=== PATIENT | female | born 1965 | race Caucasian/White ===

== ENCOUNTER 2020-07-08 21:24 | Emergency (ER) | payer OTHER ==
[~2020-07-08] VITALS: Ht 165.1 cm; Wt 75.0 kg
[2020-07-08 22:25] VITALS: BP 123/74
--- NOTE | 2020-07-08 22:35 | PHYS DOC ---
Past History Past Medical History: Anxiety, Hypertension General Adult HPI: HPI: ".. I was trying to keep my 1 yr old gand son from falling.. but instead I fell on to my Lt hip and Rt shoulder.. this Lt hip is killing me.. I can't bear wt on it..." Patient is a 54 year old female who presents with above hx and fall . Report injury to Rt., shoulder and Lt hip. Patient distal neurovascular appears to be intact however marked pain left hip. Does have contusion to right shoulder and chest wall. Distal neurovascular appears to be intact in her arms. Patient denies other injury. Any movement of left hip does exacerbate her pain. Patient normally follows at for her care. She also works at . Patient request to be transferred to if condition which she had required admission. No recent travel. No specific history of ill contacts. Review of Systems: Review of Systems: Constitutional: Denies fever or chills Eyes: Denies change in visual acuity HENT: Denies nasal congestion or sore throat Respiratory: Denies cough or shortness of breath Cardiovascular: Denies chest pain or edema GI: Denies abdominal pain, nausea, vomiting, bloody stools or diarrhea : Denies dysuria Musculoskeletal: Complains of right shoulder, chest wall and left hip pain Integument: Denies rash Neurologic: Denies headache, focal weakness or sensory changes Endocrine: Denies polyuria or polydipsia Lymphatic: Denies swollen glands Psychiatric: Denies depression or anxiety Family History: Family History: Noncontributory to presentation Current Medications: Current Meds: See nursing for home meds Allergies: Allergies: No known drug allergies Physical Exam: PE: Constitutional: in acute distress, non-toxic appearance. [] HENT: Normocephalic, atraumatic, bilateral external ears normal, oropharynx moist, no oral exudates, nose normal. [] Eyes: PERRLA, EOMI, conjunctiva normal, no discharge. [] Neck: Normal range of motion, no tenderness, supple, no stridor. [] Cardiovascular:Heart rate regular rhythm, no murmur [] Lungs & Thorax: Bilateral breath sounds clear to auscultation [] Abdomen: Bowel sounds normal, soft, no tenderness, no masses, no pulsatile masses. Obese. Skin: Warm, dry, no erythema, no rash. [] Back: No tenderness, no CVA tenderness. [] Extremities: No tenderness, no cyanosis, no clubbing, ROM intact, no edema. Except findings in right shoulder and left hip Neurologic: Alert and oriented X 3, normal motor function, normal sensory function, no focal deficits noted. [] Psychologic: Affect normal, judgement normal, mood normal. [] EKG: EKG: My interpretation EKG shows a sinus rhythm at 78 bpm. No acute morphology does have some slight leftward axis. [] Radiology/Procedures: Radiology/Procedures: [address] [place] [id number] IMAGING REPORT Signed PATIENT: XIOMY SOTO ACCOUNT: [id number] : 1965 LOCATION: ER AGE: 54 SEX: F EXAM STATUS: REG ER ORD. PHYSICIAN: TIN HENDERSON MD REASON: Fall, right shoudler and chest pain PROCEDURE: SHOULDER 2+V RIGHT Exam: Right shoulder 3 views INDICATION: Fall, right shoulder and chest pain TECHNIQUE: Frontal view of the right shoulder with internal and external rotation with transscapular Y views Comparisons: None FINDINGS: Bone mineralization is normal. No acute or healed fractures. Soft tissues are unremarkable. Joint spaces are well-maintained. IMPRESSION: No acute osseous abnormality. Electronically signed by: Veronica Banda MD (07/08/2020 11:45 PM) [facility] DICTATED AND SIGNED BY: VERONICA BANDA MD DATE: 07/08/20 8111 CC: TIN HENDERSON MD; NON,STAFF ~[address] [address] IMAGING REPORT Signed PATIENT: XIOMY SOTO ACCOUNT: [id number] : 1965 LOCATION: ER AGE: 54 SEX: F EXAM STATUS: REG ER ORD. PHYSICIAN: TIN HENDERSON MD REASON: Fall, right shoudler and chest pain PROCEDURE: CHEST PA & LATERAL Exam: Chest 2 views INDICATION: Fall, right shoulder and chest pain TECHNIQUE: Frontal and lateral views the chest Comparisons: None FINDINGS: The cardiomediastinal silhouette and pulmonary vessels are within normal limits. The lung and pleural spaces are clear. IMPRESSION: No acute cardiopulmonary process. Electronically signed by: Veronica Banda MD (07/08/2020 11:44 PM) [facility] DICTATED AND SIGNED BY: VERONICA BANDA MD DATE: 07/08/202 CC: TIN HENDERSON MD; NON,STAFF ~MTH0 0 [][address] [address] IMAGING REPORT Signed PATIENT: XIOMY SOTO ACCOUNT: [id number] : 1965 LOCATION: ER AGE: 54 SEX: F EXAM STATUS: REG ER ORD. PHYSICIAN: TIN HENDERSON MD REASON: fall, pelvis and left hip pain PROCEDURE: HIP LEFT 2V WITH PELVIS Exam: Pelvis 1 view INDICATION: Fall, left hip pain TECHNIQUE: Frontal view of pelvis with frontal and frog-leg lateral views of the left hip Comparisons: None FINDINGS: There is an impacted left femoral neck fracture. Bone mineralization is normal. Joint spaces are well-maintained. Soft tissues are unremarkable. IMPRESSION: Impacted left femoral neck fracture. Electronically signed by: Veronica Banda MD (07/08/2020 11:46 PM) [facility] DICTATED AND SIGNED BY: VERONICA BANDA MD DATE: 07/08/20 1819 CC: TIN HENDERSON MD; NON,STAFF ~MTH0 0 Heart Score: HEART Score for Chest Pain: HEART Score for Chest Pain Response (Comments) Value History Slighlty/Non-Suspicious 0 ECG Normal 0 Age < 45 0 Risk Factors 1 or 2 Risk Factors 1 Troponin < Normal Limit 0 Total 1 Risk Factors: Risk Factors: DM, Current or recent (<one month) smoker, HTN, HLP, family history of CAD, obesity. Risk Scores: Score 0 - 3: 2.5% MACE over next 6 weeks - Discharge Home Score 4 - 6: 20.3% MACE over next 6 weeks - Admit for Clinical Observation Score 7 - 10: 72.7% MACE over next 6 weeks - Early Invasive Strategies Course & Med Decision Making: Course & Med Decision Making Pertinent Labs and Imaging studies reviewed. (See chart for details) Discussed presentation testing with [facility]-hospitalist as well as orthopedics-however for transfer patient decided she wanted to go to Discussed presentation test and treatment plan with transfer.-Patient accepted in transfer to service at . Impression: 1. Slip and fall 2. Impacted fracture left hip 3. Contusions right shoulder and chest wall 4. Elevated D-dimer 18.10 5. Mild Leukocytosis 12.2 [] Dragon Disclaimer: Dragon Disclaimer: This electronic medical record was generated, in whole or in part, using a voice recognition dictation system. Departure Departure: Referrals: NON,STAFF (PCP) Dragon Disclaimer This chart was dictated in whole or in part using Voice Recognition software in a busy, high-work load, and often noisy Emergency Department environment. It may contain unintended and wholly unrecognized errors or omissions. Dragon Disclaimer This chart was dictated in whole or in part using Voice Recognition software in a busy, high-work load, and often noisy Emergency Department environment. It may contain unintended and wholly unrecognized errors or omissions. TIN HENDERSON MD Jul 08, 2020 22:35
[2020-07-08] MEDS ORDERED: MORPHINE SULFATE 10 MG/ML SYRINGE. SQ ONE (23:00)
[2020-07-08] MEDS ORDERED: IV RINGERS SOLUTION,LACTATED 1,000 ML IV SCH (23:45)
[2020-07-08] MEDS ORDERED: IV RINGERS SOLUTION,LACTATED 1,000 ML IV ONE (23:45)
--- NOTE | 2020-07-08 23:46 | RAD ---
Exam: Chest 2 views INDICATION: Fall, right shoulder and chest pain TECHNIQUE: Frontal and lateral views the chest Comparisons: None FINDINGS: The cardiomediastinal silhouette and pulmonary vessels are within normal limits. The lung and pleural spaces are clear. IMPRESSION: No acute cardiopulmonary process. Electronically signed by: Veronica Reyes MD (07/08/2020 11:44 PM) [facility]
--- NOTE | 2020-07-08 23:48 | RAD ---
Exam: Right shoulder 3 views INDICATION: Fall, right shoulder and chest pain TECHNIQUE: Frontal view of the right shoulder with internal and external rotation with transscapular Y views Comparisons: None FINDINGS: Bone mineralization is normal. No acute or healed fractures. Soft tissues are unremarkable. Joint spa [facility] are well-maintained. IMPRESSION: No acute osseous abnormality. Electronically signed by: Veronica Reyes MD (07/08/2020 11:45 PM) [facility]
--- NOTE | 2020-07-08 23:48 | RAD ---
Exam: Pelvis 1 view INDICATION: Fall, left hip pain TECHNIQUE: Frontal view of pelvis with frontal and frog-leg lateral views of the left hip Comparisons: None FINDINGS: There is an impacted left femoral neck fracture. Bone mineralization is normal. Joint spaces are well -maintained. Soft tissues are unremarkable. IMPRESSION: Impacted left femoral neck fracture. Electronically signed by: Veronica Reyes MD (07/08/2020 11:46 PM) [facility]
--- NOTE | 2020-07-08 23:48 | EKG ---
[address] [address] Test Date: 2020-07-08 Test Time: 23:42:41 Pat Name: XIOMY SOTO Department: Room: Gender: F Emergency Service Worker: : 1965 Requested By: TIN HENDERSON Order Number: [id number] Reading MD: Measurements Intervals [place] Rate: 78 P: 62 [place]: 124 QRS: -6 QRSD: 90 T: 24 QT: 380 QTc: 437 Interpretive Statements SINUS RHYTHM LEFTWARD AXIS OTHERWISE NORMAL ECG RI6.02 No previous ECG available for comparison
[2020-07-09] MEDS ORDERED: MORPHINE SULFATE 10 MG/ML SYRINGE. SQ ONE
[2020-07-09] MEDS ORDERED: ONDANSETRON PF 4 MG/2 ML VIAL. IVP ONE (01:00)
[2020-07-09 01:05] LABS: CALCIUM 9.2 mg/dL (8.5-10.1); GFR 57.4; POTASSIUM 4.4 mmol/L (3.5-5.1)
[2020-07-09 01:06] LABS: BASO % 0 % (0-3); EOS # 0.2 x10^3/uL (0.0-0.7); EOS % 1 % (0-3); HEMATOCRIT 41.3 % (36.0-47.0); HEMOGLOBIN 13.9 g/dL (12.0-15.5); LYMPH # 1.3 x10^3/uL (1.0-4.8); LYMPH % 11 % (24-48); MEAN CORPUSCULAR HEMOGLOBIN 31 pg (25-35); MEAN CORPUSCULAR HGB CONC 34 g/dL (31-37); MEAN CORPUSCULAR VOLUME 91 fL (79-100); MONO # 0.7 x10^3/uL (0.0-1.1); MONO % 6 % (0-9); NEUT % 82 % (31-73); PLATELET COUNT 150 x10^3/uL (140-400); RED BLOOD COUNT 4.53 x10^6/uL (3.50-5.40); WHITE BLOOD COUNT 12.2 x10^3/uL (4.0-11.0)
[2020-07-09 01:17] LABS: ALBUMIN 4.2 g/dL (3.4-5.0); DIRECT BILIRUBIN 0.2 mg/dL (0.0-0.2); MAGNESIUM 1.9 mg/dL (1.8-2.4); TOTAL BILIRUBIN 0.6 mg/dL (0.2-1.0); TOTAL PROTEIN 7.4 g/dL (6.4-8.2)
== END 2020-07-09 01:56 | disposition short-term general hospital (02) ==
LOC: ER 21:24
DX: S72.002A Fracture of unspecified part of neck of left femur, initial encounter for closed fracture (principal); S40.011A Contusion of right shoulder, initial encounter; S20.211A Contusion of right front wall of thorax, initial encounter; D72.829 Elevated white blood cell count, unspecified; R79.1 Abnormal coagulation profile; F41.9 Anxiety disorder, unspecified; I10 Essential (primary) hypertension; W01.0XXA Fall on same level from slipping, tripping and stumbling without subsequent striking against object, initial encounter; Y93.89 Activity, other specified; Y92.89 Other specified places as the place of occurrence of the external cause; Y99.8 Other external cause status
CPT/HCPCS: 36415; 71046; 73030; 73502; 80048; 80076; 82550; 83690; 83735; 83880; 84443; 84484; 85025; 85379; 85610; 85730; 93005; 96361; 96372; 96374; 99285; J2270; J2405; J7120